=== PATIENT | female | born 1975 | race Caucasian/White ===

== ENCOUNTER 2016-10-26 08:22 | Inpatient (IN) | payer OTHER, MEDICAID ==
[~2016-10-26] VITALS: Ht 160 cm; Wt 94.0 kg
[~2016-10-26 08:22] MED LIST: LEVE250T55 PO
[2016-10-26] MEDS ORDERED: DIVA500T52 PO (08:32)
[2016-10-26 09:35] LABS: BASOPHILS % (AUTO) 0.4 % (0.0-2.0); EOSINOPHILS % (AUTO) 2.6 % (1.0-6.0); HEMOGLOBIN 11.8 g/dL (12.0-16.0); LYMPHOCYTES # (AUTO) 2.3 K/uL (1.0-4.8); LYMPHOCYTES % (AUTO) 46.4 % (22.0-44.0); MEAN CORPUSCULAR HGB CONC 31.9 G/dL (31.0-37.0); MEAN CORPUSCULAR VOLUME 78 fL (80-100); MONOCYTES # (AUTO) 0.4 K/uL (0.1-1.0); MONOCYTES % (AUTO) 8.2 % (2.0-9.0); NEUTROPHILS # (AUTO) 2.1 K/uL (1.8-7.7); NEUTROPHILS % (AUTO) 42.4 % (40.0-70.0); PLATELET COUNT (AUTO) 211 K/uL (150-450); RED BLOOD CELL COUNT(AUTO) 4.72 MIL/uL (4.00-5.20); RED CELL DISTRIBUTION WIDTH 17.1 % (11.5-14.5)
[2016-10-26 09:44] LABS: ANION GAP 7 mmol/L (8-16); CALCIUM, TOTAL 8.5 mg/dL (8.8-10.5); CARBON DIOXIDE 30 mmol/L (22-29); CHLORIDE 107 mmol/L (98-107); CREATININE 0.61 mg/dL (0.60-1.30); GLOMERULAR FILTR. RATE CALC > 60 mL/min (>60); POTASSIUM 4.1 mmol/L (3.5-5.1); SODIUM SERUM 144 mmol/L (136-145); UREA NITROGEN, BLOOD 14 mg/dL (7-18)
[2016-10-26 09:52] LABS: ALANINE AMINOTRANSFERASE 13 U/L (12-78); ALBUMIN 3.4 g/dL (3.4-5.0); ASPARTATE AMINOTRANSFERASE 16 U/L (15-37); BILIRUBIN,TOTAL 0.5 mg/dL (0.1-1.0); TOTAL PROTEIN, SERUM 6.9 g/dL (6.4-8.2)
[2016-10-26 10:19] LABS: RBC MORPHOLOGY COMMENT ABNORMAL RBC MORPH
[2016-10-26] MEDS ORDERED: LORazepam 2 MG TABLET PO PRN (10:45)
[2016-10-26] MEDS ORDERED: OLANZapine 5 MG RAPDIS TABLET PO PRN (10:45)
[2016-10-26] MEDS ORDERED: ZOLPIDEM TARTRATE 10 MG TABLET PO PRN (10:45)
[2016-10-26 10:59] LABS: VALPROIC ACID 104 mcg/mL (50-100)
[2016-10-26] MEDS ORDERED: LORazepam 2 MG TABLET PO ONE (12:00)
[2016-10-26] MEDS ORDERED: MAGNESIUM HYDROXIDE SUSPENSION 30 ML UDCUP PO PRN (14:00)
[2016-10-26] MEDS ORDERED: GuaiFENesin/D-METHORPHAN [SUGAR-FREE] 200-20MG/10 ML SYRUP UDCUP PO PRN (14:00)
[2016-10-26] MEDS ORDERED: LOPERAMIDE HCL 2 MG CAPSULE PO PRN (14:00)
[2016-10-26] MEDS ORDERED: ACETAMINOPHEN 325 MG TABLET PO PRN ×2 (14:00→16:45)
[2016-10-26] MEDS ORDERED: TUBERCULIN, PURIFIED PROTEIN DERIVATIVE 5 TU/0.1 ML SYG ID ONE (14:00)
[2016-10-26] MEDS ORDERED: MAG HYDROX/AL HYDROX/SIMETH ES 30 ML SUSPENSION UDCUP PO PRN (14:00)
[2016-10-26] MEDS ORDERED: PROMETHAZINE HCL 25 MG TABLET PO PRN (14:00)
[2016-10-26] MEDS ORDERED: HydrOXYzine PAMOATE 50 MG CAPSULE PO PRN (14:00)
[2016-10-26 16:30] VITALS: BP 123/76
[2016-10-26] MEDS ORDERED: IBUPROFEN 400 MG TABLET PO PRN (16:45)
[2016-10-26] MEDS: THIAMINE HCL 100 MG TABLET PO SCH (16:50)
[2016-10-26] MEDS: OLANZapine 5 MG RAPDIS TABLET PO SCH (20:40)
[2016-10-26] MEDS ORDERED: DIVALPROEX SODIUM 500 MG DR TABLET PO SCH ×2 (21:00)
[2016-10-27 04:09] VITALS: BP 121/77
[2016-10-27 08:07] VITALS: BP 115/68
[2016-10-27 08:27] LABS: HEMOGLOBIN A1C 5.7 % (4.5-6.2)
[2016-10-27 08:49] LABS: CHOL/HDL RATIO 2.4 (3.9-5.7); THYROID STIMULATING HORMONE 3.34 uIU/mL (0.36-3.74)
[2016-10-27] MEDS: FOLIC ACID 1 MG TABLET PO SCH (08:50)
[2016-10-27] MEDS: MULTIVITAMINS WITH MINERALS, THERAPEUTIC TABLET PO SCH (08:50)
[2016-10-27] MEDS: THIAMINE HCL 100 MG TABLET PO SCH ×2 (08:50→16:33)
[2016-10-27] MEDS ORDERED: ACETAMINOPHEN 325 MG TABLET PO PRN (16:00)
[2016-10-27] MEDS ORDERED: IBUPROFEN 400 MG TABLET PO PRN (16:00)
[2016-10-27 16:32] VITALS: BP 106/64
[2016-10-27] MEDS: OLANZapine 5 MG RAPDIS TABLET PO SCH (20:35)
[2016-10-28 01:27] VITALS: BP 100/61
[2016-10-28 08:06] VITALS: BP 105/64
[2016-10-28 08:45] LABS: HEMOGLOBIN A1C 5.6 % (4.5-6.2)
[2016-10-28] MEDS: THIAMINE HCL 100 MG TABLET PO SCH ×2 (08:45→16:42)
[2016-10-28] MEDS: LevETIRAcetam 500 MG TABLET PO SCH ×2 (08:45→16:54)
[2016-10-28] MEDS: MULTIVITAMINS WITH MINERALS, THERAPEUTIC TABLET PO SCH (08:45)
[2016-10-28] MEDS: FOLIC ACID 1 MG TABLET PO SCH (08:45)
[2016-10-28 09:05] LABS: CHOL/HDL RATIO 2.2 (3.9-5.7); THYROID STIMULATING HORMONE 2.52 uIU/mL (0.36-3.74)
[2016-10-28 16:08] VITALS: BP 107/63
[2016-10-28] MEDS ORDERED: LEVE500T53 PO ×2 (17:21→18:31)
[2016-10-28] MEDS ORDERED: OLAN5Z PO (17:21)
[2016-10-28] MEDS ORDERED: OLAN7.5T2 PO (18:31)
[2016-10-28] MEDS: OLANZapine 5 MG RAPDIS TABLET PO SCH (20:15)
== END 2016-10-28 20:40 | disposition home or self-care (01) | DRG 885 ==
LOC: EMS 08:24 → EEVIPCON 08:24 → B2X 10:49
PROVIDERS: ADMIT Psychiatry & Neurology Psychiatry; ATTEND Psychiatry & Neurology Psychiatry
DX: F25.9 Schizoaffective disorder, unspecified (principal); F17.210 Nicotine dependence, cigarettes, uncomplicated; G40.909 Epilepsy, unspecified, not intractable, without status epilepticus; D64.9 Anemia, unspecified; F32.9 Major depressive disorder, single episode, unspecified; F41.9 Anxiety disorder, unspecified; E83.51 Hypocalcemia; Z91.19 Patient's noncompliance with other medical treatment and regimen; Z91.14 Patient's other noncompliance with medication regimen
CPT/HCPCS: 82607; 82728; 82746; 83036; 83540; 83550; 84443; 99285; G0480

== ENCOUNTER 2023-02-27 16:14 | Emergency (ER) | payer OTHER ==
[~2023-02-27] VITALS: Ht 160 cm; Wt 89.0 kg
[~2023-02-27 16:14] MED LIST changes: -LEVE250T55 PO; +LEVE500T20 PO; +OLAN5TAB94 PO; +OLAN7.5T22 PO
[2023-02-27 16:48] VITALS: BP 110/76; PULSE 95; RESP 16; TEMP 97.8
[2023-02-27] MEDS ORDERED: LORA10TA7 PO (16:51)
== END 2023-02-27 20:14 | disposition left against medical advice (07) ==
LOC: EMS 16:15
DX: M79.605 Pain in left leg (principal); M79.604 Pain in right leg; M79.602 Pain in left arm; Z53.21 Procedure and treatment not carried out due to patient leaving prior to being seen by health care provider
CPT/HCPCS: 99281; Z7502

== ENCOUNTER 2024-01-06 19:28 | Emergency (ER) | payer OTHER ==
[~2024-01-06] VITALS: Ht 162.6 cm; Wt 90.9 kg
[~2024-01-06 19:28] MED LIST changes: +ARIP5TAB37 PO; -LEVE500T20 PO; -OLAN5TAB94 PO; -OLAN7.5T22 PO
[2024-01-06 19:29] VITALS: BP 103/63; PULSE 88; RESP 18; TEMP 98
[2024-01-06] MEDS ORDERED: RISP-31 PO (23:01)
[2024-01-06] MEDS: IBUPROFEN 600 MG TABLET PO ONE (23:09)
== END 2024-01-06 23:16 | disposition home or self-care (01) ==
LOC: EMS 19:28
DX: S70.02XA Contusion of left hip, initial encounter (principal); F17.210 Nicotine dependence, cigarettes, uncomplicated; F15.10 Other stimulant abuse, uncomplicated; W01.0XXA Fall on same level from slipping, tripping and stumbling without subsequent striking against object, initial encounter; Y93.89 Activity, other specified; Y92.89 Other specified places as the place of occurrence of the external cause; Y99.8 Other external cause status
CPT/HCPCS: 99283

== ENCOUNTER 2024-02-24 07:41 | Emergency (ER) | payer OTHER ==
[~2024-02-24] VITALS: Ht 165.1 cm; Wt 106.9 kg
[~2024-02-24 07:41] MED LIST changes: +RISP-31 PO
[2024-02-24 07:54] VITALS: BP 117/68; PULSE 75; RESP 14; TEMP 98.5
[2024-02-24] MEDS: ACETAMINOPHEN 500 MG TABLET PO ONE (08:13)
[2024-02-24] MEDS ORDERED: ACET-3385 PO (09:22)
== END 2024-02-24 11:42 | disposition home or self-care (01) ==
LOC: EMS 07:41
DX: S80.02XA Contusion of left knee, initial encounter (principal); F17.210 Nicotine dependence, cigarettes, uncomplicated; F15.10 Other stimulant abuse, uncomplicated; W18.2XXA Fall in (into) shower or empty bathtub, initial encounter; Y93.89 Activity, other specified; Y92.89 Other specified places as the place of occurrence of the external cause; Y99.8 Other external cause status
CPT/HCPCS: 99283